=== PATIENT | male | born 1955 | race Caucasian/White ===

== ENCOUNTER 2017-03-09 10:42 | Emergency (ER) | payer BC ==
[2017-03-09 11:54] LABS: Hematocrit 37 % (42-52); Hemoglobin 12.3 g/dl (14.0-18.0); Mean Corpuscular HGB Conc 34 g/dl (31-36); Mean Corpuscular Hemoglobin 31 pg (27-31); Mean Corpuscular Volume 94 fL (80-94); Mean Platelet Volume 8 um3 (7.4-10.4); Red Blood Count 3.92 10^6/ul (4.0-5.4); Red Cell Distribution Width 13 % (10.5-15); White Blood Count 12.2 10^3/ul (3.5-10.8)
[2017-03-09 12:11] LABS: Troponin I 0.01 ng/mL (<0.04)
[2017-03-09 12:14] LABS: Albumin 3.6 g/dL (3.2-5.2); BUN/Creatinine Ratio 20.3 (8-20); C Reactive Protein 178.61 mg/L (< 5.00); EGFR African American 128.7 (>60); Globulin 2.8 g/dL (2-4); Total Bilirubin 1.3 mg/dL (0.2-1.0); Total Protein 6.4 g/dL (6.4-8.9)
--- NOTE | 2017-03-09 13:18 | RAD ---
INDICATION: Chest pain COMPARISON: Chest x-ray dated April 22, 2012 TECHNIQUE: PA and lateral views of the chest were obtained. FINDINGS: The heart and mediastinum are normal in size and contour. There is density overlying the right medial lower lung obscuring the right heart border. Lateral view this density is located at the right middle lobe. Remaining lungs are well aerated. Visualized bones are normal for the patient's age. There is no radiographic evidence of free air beneath the diaphragm IMPRESSION: CHEST X-RAY FINDINGS ARE MOST CONSISTENT WITH LOBAR PNEUMONIA INVOLVING THE RIGHT MIDDLE LOBE.
[2017-03-09] MEDS ORDERED: Ketorolac INJ* 30 MG/ML 1 ML VIAL IV PUSH ONE (13:44)
[2017-03-09] MEDS ORDERED: Levofloxacin 750 MG IVPREMIX(* 750 MG/150 ML BAG IVPB ONE (13:44)
[2017-03-09] MEDS ORDERED: NS 0.9% 1000 ML* 1,000 ML IV ONE (14:30)
[2017-03-09 16:30] VITALS: BP 113/52
--- NOTE | 2017-03-10 08:33 | ED ---
Didier Putnam Nikita, scribed for Greg Velásquez MD on 03/09/17 at 1123 . HPI Cardiac - HPI Summary HPI Summary: This patient is a 61 year old M presenting to ED with upper respiratory complaints since 3 weeks ago. The CC is described as having worsened last night. The patient rates the pain 4/10 in severity. Symptoms aggravated by leaning over, movement, breathing, coughing, and sneezing. Symptoms alleviated by Oxycodone. Patient reports upper R chest pain, chills, cough (improved), congestion, and near LOC. Patient denies a fever and sore throat. - History of Current Complaint Chief Complaint: EDUpperRespComplaint Stated Complaint: CHEST PAIN/CHEST CONGESTION Time Seen by Provider: 03/09/17 11:02 Hx Obtained From: Patient Onset/Duration: Started Weeks Ago - 3 weeks ago, Still Present Timing: Constant Initial Severity: Moderate Current Severity: Moderate Pain Intensity: 4 Pain Scale Used: 0-10 Numeric Chest Pain Location: Upper Sternal - upper right chest pain Aggravating Factor(s): Other: - aggravated by leaning over, movement, breathing , coughing, and sneezing Alleviating Factor(s): Other: - oxycodone Associated Signs and Symptoms: Positive: Other: - Patient reports upper R chest pain, chills, cough (improved), congestion, and near LOC. Patient denies a fever and sore throat. - Allergy/Home Medications Allergies/Adverse Reactions: Allergies Allergy/AdvReac Type Severity Reaction Status Date / Time No Known Allergies Allergy Verified 03/09/17 10:49 PMH/Surg Hx/FS Hx/Imm Hx Endocrine/Hematology History: Denies: Hx Anticoagulant Therapy, Other Endocrine/Hematological Disorders Cardiovascular History: Denies: Other Cardiovascular Problems/Disorders Respiratory History: Denies: Other Respiratory Problems/Disorders GI History: Denies: Other GI Disorders History: Reports: Other Problems/Disorders - urine slow irregular stream / frequent Musculoskeletal History: Denies: Other Musculoskeletal History Sensory History: Denies: Other Sensory Impairments Opthamlomology History: Denies: Other Sensory Impairments Neurological History: Denies: Other Neuro Impairments/Disorders Psychiatric History: Reports: Hx Anxiety, Hx Depression Denies: Other Psychiatric Issues/Disorders Infectious Disease History: No Infectious Disease History: Denies: Traveled Outside the [place] in Last 30 Days - Family History Known Family History: Negative: Cardiac Disease, Hypertension, Diabetes - Social History Alcohol Use: Daily Alcohol Amount: 2-3 hard drinks/day Substance Use Type: Reports: None Smoking Status (MU): Light Every Day Tobacco Smoker Review of Systems Positive: Chills. Negative: Fever Negative: Sore Throat Positive: Chest Pain - upper right CP Positive: Cough, Other - congestion Neurological: Other - near LOC All Other Systems Reviewed And Are Negative: Yes Physical Exam - Summary Physical Exam Summary: GENERAL: ~Patient is a well-developed and nourished MALE who is lying comfortable in the stretcher. ~Patient is not in any acute respiratory distress. HEAD AND FACE: No signs of trauma. ~No ecchymosis, hematomas or skull depressions. No sinus tenderness. EYES: PERRLA, EOMI x 2, No injected conjunctiva, no nystagmus. EARS: Hearing grossly intact. Ear canals and tympanic membranes are within normal limits. MOUTH: Oropharynx within normal limits. NECK: Supple, trachea is midline, no adenopathy, no JVD, no carotid bruit, no c- spine tenderness, neck with full ROM. CHEST: Symmetric, no tenderness at palpation LUNGS: Clear to auscultation bilaterally. No wheezing or crackles. CVS: Regular rate and rhythm, S1 and S2 present, no murmurs or gallops appreciated. ABDOMEN: Soft, non-tender. No signs of distention. No rebound no guarding, and no masses palpated. Bowel sounds are normal. EXTREMITIES: FROM in all major joints, no edema, no cyanosis or clubbing. NEURO: Alert and oriented x 3. No acute neurological deficits. Speech is normal and follows commands. SKIN: Dry and warm Triage Information Reviewed: Yes Vital Signs On Initial Exam: Initial Vitals Temp Pulse Resp BP Pulse Ox 98.8 F 68 16 119/61 97 03/09/17 10:44 03/09/17 10:44 03/09/17 10:44 03/09/17 10:44 03/09/17 10:44 Vital Signs Reviewed: Yes - [place] Coma Scale Coma Scale Total: 15 Diagnostics - Vital Signs Vital Signs Temp Pulse Resp BP Pulse Ox 03/09/17 10:44 98.8 F 68 16 119/61 97 - Laboratory Result Diagrams: 03/09/17 11:38 10/21/17 11:38 Lab Statement: Any lab studies that have been ordered have been reviewed, and results considered in the medical decision making process. - Radiology CXR Radiology Interpretation Completed By: Radiologist - CHEST X-RAY FINDINGS ARE MOST CONSISTENT WITH LOBAR PNEUMONIA INVOLVING THE RIGHT MIDDLE LOBE. ED physician has reviewed this radiology report and agrees. - EKG 1140 Cardiac Rate: NL - 64 bpm EKG Interpretation: No ST elevations Disposition - Course Assessment/Plan: This patient is a 61 year old M presenting to ED with upper respiratory complaints since 3 weeks ago. The CC is described as having worsened last night. The patient rates the pain 4/10 in severity. Symptoms aggravated by leaning over, movement, breathing, coughing, and sneezing. Symptoms alleviated by Oxycodone. Patient reports upper R chest pain, chills, cough (improved), congestion, and near LOC. Patient denies a fever and sore throat. CHEST X-RAY FINDINGS ARE MOST CONSISTENT WITH LOBAR PNEUMONIA INVOLVING THE RIGHT MIDDLE LOBE. ED physician has reviewed this radiology report and agrees. EKG reveals sinus rhythm at [address] elevations. Blood work is without significant abnormalities except WBC 12.2 and CRP of 178. Influenza A and B are negative. CXR is positive for PNA. In the ED course, pt was given IV fluids, Toradol for pain and levaquin for PNA. After medications, pt is feeling better. CURB 65 is less than 1, therefore the pt can be treated as an outpatient. The pt is hemodynamically stable, alert and oriented x3. - Diagnoses Provider Diagnoses: Pneumonia Discharge - Discharge Plan Condition: Stable Disposition: HOME Prescriptions: Levofloxacin TAB* [Levaquin TAB*] 750 mg PO DAILY #10 tab Patient Education Materials: Pneumonia (ED) Forms: *Work Release Referrals: John Hills MD [Primary Care Provider] - 3 Days The documentation as recorded by the Didier floyd Nikita accurately reflects the service I personally performed and the decisions made by me, Greg Velásquez MD.
== END 2017-03-09 16:32 | disposition home or self-care (01) ==
LOC: ED 10:42
DX: J18.9 Pneumonia, unspecified organism (principal); R07.9 Chest pain, unspecified; R05 Cough; F17.210 Nicotine dependence, cigarettes, uncomplicated
CPT/HCPCS: 36415; 71020; 80053; 82550; 82553; 83605; 83880; 84484; 85025; 86140; 87040; 87502; 93005; 96374; 99283; J1885

== ENCOUNTER 2019-05-27 11:07 | Emergency (ER) | payer BC, OTHER ==
--- NOTE | 2019-05-27 11:55 | ED ---
Lower Extremity - HPI Summary HPI Summary: This patient is a 64 year old male presenting to [facility] with a chief complaint of left knee pain. 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 He states he pain goes from the top of his calf thought the left side/back of the knee up to the top left area. He reports swelling in the back of the knee. He rates his pain 8/10 in severity. He has elevated it and applied ice. Medications reviewed, allergies noted. - History of Current Complaint Chief Complaint: EDExtremityLower Stated Complaint: FALL-LEFT KNEE INJURY PER PT Time Seen by Provider: 05/27/19 11:48 Hx Obtained From: Patient Onset of Pain: Hours Onset/Duration: Hours Pain Intensity: 8 Pain Scale Used: 0-10 Numeric - Allergies/Home Medications Allergies/Adverse Reactions: Allergies Allergy/AdvReac Type Severity Reaction Status Date / Time No Known Allergies Allergy Verified 05/27/19 11:20 PMH/Surg Hx/FS Hx/Imm Hx Endocrine/Hematology History: Denies: Hx Anticoagulant Therapy, Other Endocrine/Hematological Disorders Cardiovascular History: Denies: Other Cardiovascular Problems/Disorders Respiratory History: Denies: Other Respiratory Problems/Disorders GI History: Denies: Other GI Disorders History: Reports: Other Problems/Disorders - urine slow irregular stream / frequent Musculoskeletal History: Denies: Other Musculoskeletal History Sensory History: Denies: Other Sensory Impairments Opthamlomology History: Denies: Other Sensory Impairments Neurological History: Denies: Other Neuro Impairments/Disorders Psychiatric History: Reports: Hx Anxiety, Hx Depression Denies: Other Psychiatric Issues/Disorders Infectious Disease History: No Infectious Disease History: Denies: Traveled Outside the [place] in Last 30 Days - Family History Known Family History: Negative: Cardiac Disease, Hypertension, Diabetes - Social History Alcohol Use: Daily Alcohol Amount: 2-3 hard drinks/day Substance Use Type: Reports: None Smoking Status (MU): Light Every Day Tobacco Smoker Review of Systems Negative: Fever Positive: Edema, Other - Knee pain All Other Systems Reviewed And Are Negative: Yes Physical Exam - Summary Physical Exam Summary: Constitutional: Well-developed, Well-nourished, Alert, Cooperative Skin: Warm, Dry HENT: Normocephalic; No Racoons eyes; No brar's sign; No abrasion; No contusion; No hemotympanum; No maxilla facial tenderness or instability; Dentition are smooth; No dental trauma; No trismus Eyes: EOM normal, PERRL Neck: Trachea is midline. No stridor; No JVD; No step off; No posterior cervical spine tenderness Cardio: Rhythm regular, rate normal Heart sounds normal; Intact distal pulses. Radial pulses are 2+ and symmetric. Pulmonary/Chest wall: Effort normal; Breath sounds normal; Equal chest rise; No flail segment; No rib tenderness; No sternal tenderness Abd: Soft, Appearance normal. No distension; No tenderness; No palpable pulsatile mass; No Cullens sign; No Ko-Turners sign Musculoskeletal: Full ROM and no tenderness at hips, ankles, shoulders, elbows; No joint swelling; No vertebral body tenderness; No paraspinal tenderness; No step off or deformity of the spine; Pelvis is stable to lateral compression and rock. No lateral or medial laxity in the left knee. Negative Drawer sign. Tenderness over the popliteal fossa. Neuro: Alert, Oriented x3, Strength 5/5 all extremities. : No blood at urethral meatus Psych: Mood and affect Normal Triage Information Reviewed: Yes Vital Signs On Initial Exam: Initial Vitals Temp Pulse Resp BP Pulse Ox 97.5 F 64 16 142/80 98 05/27/19 11:17 05/27/19 11:17 05/27/19 11:17 05/27/19 11:17 05/27/19 11:17 Vital Signs Reviewed: Yes Procedures - Sedation Patient Received Moderate/Deep Sedation with Procedure: No Diagnostics - Vital Signs Vital Signs Temp Pulse Resp BP Pulse Ox 05/27/19 11:17 97.5 F 64 16 142/80 98 - Laboratory Lab Statement: Any lab studies that have been ordered have been reviewed, and results considered in the medical decision making process. Lower Extremity Course/Dx - Course Course Of Treatment: Patient's U of traumatic left knee pain that occurred yesterday. Patient is able to a bleeding but does have pain when he hemorrhoids. Patient has no evidence of joint laxity on exam. Patient's no bony tenderness. Patient himself does not think he fractured his knee. Patient was concerned about an internal knee injury and was educated on following up with orthopedic surgery for possible MRI. Patient had an Gee wrap applied and he declined crutches. - Diagnoses Provider Diagnoses: Knee injury Discharge ED - Sign-Out/Discharge Documenting (check all that apply): Patient Departure - Discharge - Discharge Plan Condition: Stable Disposition: HOME Prescriptions: Ibuprofen TAB* [Motrin TAB* 600 MG] 600 mg PO Q6H PRN #30 tab PRN Reason: Pain - Mild Patient Education Materials: Knee Pain (ED) Forms: *Work Release Referrals: Timur Sotomayor MD [Medical Doctor] - Additional Instructions: Follow up with Orthopedics if the pain does not get better within a week. Use your gee bandage for comfort, elevate your leg, put ice on it. - Billing Disposition and Condition Condition: STABLE Disposition: Home - Attestation Statements Document Initiated by Angelitaibrock: Yes Documenting Scribe: Aren Talavera Provider For Whom Isael is Documenting (Include Credential): Pravin Vaz MD Scribe Attestation: Aren Putnam, scribed for Pravin Vaz MD on 05/27/19 at 1307. Scribe Documentation Reviewed: Yes Provider Attestation: The documentation as recorded by the Aren floyd accurately reflects the service I personally performed and the decisions made by Pravin roy MD Status of Scribe Document: Viewed
[2019-05-27] MEDS ORDERED: Ibuprofen TAB* 600 MG PO ONE (12:01)
[2019-05-27 12:40] VITALS: BP 139/83
== END 2019-05-27 12:38 | disposition home or self-care (01) ==
LOC: ED 11:07
DX: S89.92XA Unspecified injury of left lower leg, initial encounter (principal); W03.XXXA Other fall on same level due to collision with another person, initial encounter; Y92.219 Unspecified school as the place of occurrence of the external cause; Y99.0 Civilian activity done for income or pay; F41.9 Anxiety disorder, unspecified; F32.9 Major depressive disorder, single episode, unspecified; F17.200 Nicotine dependence, unspecified, uncomplicated
CPT/HCPCS: 99282; A9270-GY

== ENCOUNTER 2021-01-31 08:15 | Inpatient (IN) ==
[2021-01-31 08:34] LABS: ABS Basophils 0.1 10^3/ul (0-0.2); ABS Eosinophils 0.3 10^3/ul (0-0.6); ABS Lymphocytes 3.1 10^3/ul (1.0-4.8); ABS Monocytes 0.8 10^3/ul (0-0.8); ABS Neutrophils 4.2 10^3/ul (1.5-7.7); Eosinophil % 3.6 %; Hematocrit 44 % (42-52); Hemoglobin 15.1 g/dL (14.0-18.0); Mean Corpuscular HGB Conc 34 g/dL (31-36); Mean Corpuscular Hemoglobin 32 pg (27-31); Mean Corpuscular Volume 94 fL (80-94); Mean Platelet Volume 7.5 fL (7.4-10.4); Platelet Count 208 10^3/uL (150-450); Red Blood Count 4.68 10^6 /uL (4.18-5.48); Red Cell Distribution Width 14 % (10-15); White Blood Count 8.5 10^3/uL (3.5-10.8)
[2021-01-31 08:40] LABS: INR 0.96 (0.86-1.15)
[2021-01-31 08:52] LABS: Albumin/Globulin Ratio 1.5 (1-3); Calcium 9.4 mg/dL (8.6-10.3); EGFR African American 77.5 (>60); Globulin 2.7 g/dL (2-4); Potassium 4.3 mmol/L (3.5-5.0); Total Bilirubin 0.6 mg/dL (0.2-1.0); Total Protein 6.7 g/dL (6.4-8.9)
[2021-01-31 08:53] LABS: Troponin I 0.01 ng/mL (<0.03)
[2021-01-31] MEDS ORDERED: Iohexol 350 (CONTRAST) 500 ML MDV IV ONE (09:07)
[2021-01-31] MEDS ORDERED: Morphine 4 MG/ML VIAL (1 ml) IV ONE (09:23)
[2021-01-31] MEDS ORDERED: NS 0.9% 1000 ml BAG 1,000 ML IV SCH ×2 (09:45→13:30)
[2021-01-31] MEDS ORDERED: Heparin 5000 UNITS/ML 1 mL VIAL IV SCH (11:00)
[2021-01-31] MEDS ORDERED: Heparin DRIP 25,000 UNITS BAG 25,000 UNITS/500 ML BAG IV SCH (11:00)
[2021-01-31 11:40] LABS: ABS Eosinophils 0.3 10^3/ul (0-0.6); ABS Lymphocytes 2.3 10^3/ul (1.0-4.8); ABS Monocytes 0.6 10^3/ul (0-0.8); Eosinophil % 3.7 %; Hematocrit 42 % (42-52); Hemoglobin 14.4 g/dL (14.0-18.0); Mean Corpuscular HGB Conc 34 g/dL (31-36); Mean Corpuscular Hemoglobin 32 pg (27-31); Mean Corpuscular Volume 95 fL (80-94); Mean Platelet Volume 7.8 fL (7.4-10.4); Platelet Count 181 10^3/uL (150-450); Red Blood Count 4.45 10^6 /uL (4.18-5.48); Red Cell Distribution Width 14 % (10-15); White Blood Count 7.3 10^3/uL (3.5-10.8)
[2021-01-31 12:00] LABS: Troponin I 0.01 ng/mL (<0.03)
[2021-01-31] MEDS ORDERED: Heparin 2 UNITS/ML 1000 mls 2,000 ML IV ONE (12:18)
[2021-01-31] MEDS ORDERED: nitroGLYCERIN DRIP 25,000 MCG/250 ML BTL ONE (12:18)
[2021-01-31] MEDS ORDERED: Lidocaine 1% VIAL 10 MG/ML VIAL ONE (12:19)
[2021-01-31] MEDS ORDERED: Iohexol 350 (CONTRAST) 200 ML MDV IV ONE (12:19)
[2021-01-31] MEDS ORDERED: niCARdipine 0.1MG/ML IVPREMIX 20 MG/200 ML BAG IV ONE (12:20)
[2021-01-31] MEDS ORDERED: Midazolam 5 mg/5 ml VIAL 1 mg/ml 5 ml VIAL (5 mg) ONE (12:25)
[2021-01-31] MEDS ORDERED: fentaNYL 100 mcg/2 ml 50 MCG/ML VIAL ONE (12:25)
[2021-01-31 12:29] LABS: EGFR African American 97.8 (>60); EGFR Non-African American 80.8 (>60)
[2021-01-31] MEDS ORDERED: Heparin 1,000 UNIT/ML 10 ml (10,000 UNITS) CATHLAB/DIALYSIS ONE (12:33)
[2021-01-31 13:17] LABS: HDL Cholesterol 88.7 mg/dL
[2021-02-01 13:53] VITALS: BP 135/69
== END 2021-02-01 14:10 | disposition home or self-care (01) | DRG 192 ==
LOC: MEDTELE 08:15 → ED 08:15 → OBSVTOIN 11:23 → SUATTDRO 11:23 → ED 12:22
PROVIDERS: ADMIT Internal Medicine; ATTEND Internal Medicine